=== PATIENT | female | born 1945 | race Caucasian/White ===

== ENCOUNTER 2017-08-22 09:35 | Outpatient (CLI) | payer MEDICARE | END 2017-08-22 09:36 | disposition home or self-care (01) | LOC: BICMAMMO 09:35 | PROVIDERS: ATTEND Family Medicine | DX: Z12.31 Encounter for screening mammogram for malignant neoplasm of breast (principal) | CPT/HCPCS: 77063; 77067 ==

== ENCOUNTER 2019-04-09 09:35 | Outpatient (CLI) | payer MEDICARE ==
--- NOTE | 2019-04-09 11:58 | BD ---
DEXA BONE DENSITY STUDY: HISTORY: Postmenopausal. LUMBAR SPINE BMD (g/cm2) T-SCORE L1 0.753 -2.2 L2 0.824 -1.9 L3 0.854 -2.1 L4 0.875 -1.7 TOTAL 0.832 -2.0 LEFT FEMORAL NECK 0.640 -1.9 TOTAL 0.850 -0.8 IMPRESSION: 1. Osteopenia of the lumbar spine and left femoral neck. 2. Ten year fracture risk for a major osteoporotic fracture is 10% and for a hip fracture is 2.5%. [facility] for an untreated [facility]. POS: [facility]
== END 2019-04-09 09:36 | disposition home or self-care (01) ==
LOC: BICMAMMO 09:35
PROVIDERS: ATTEND Family Medicine
DX: Z13.820 Encounter for screening for osteoporosis (principal); Z78.0 Asymptomatic menopausal state; M85.89 Other specified disorders of bone density and structure, multiple sites
CPT/HCPCS: 77080